=== PATIENT | male | born 2000 | race Asian ===

== ENCOUNTER 2018-12-27 22:25 | Emergency (ER) | payer OTHER ==
[2018-12-27 22:46] LABS: BILIRUBIN,URINE NEGATIVE (NEGATIVE); GLUCOSE, URINE (UA) NEGATIVE (NEGATIVE); KETONES,URINE (UA) NEGATIVE (NEGATIVE); LEUKOCYTE ESTERASE, URINE NEGATIVE (NEGATIVE); NITRITE,URINE NEGATIVE (NEGATIVE); OCCULT BLOOD,URINE TRACE-INTA (NEGATIVE); PROTEIN,URINE NEGATIVE (NEGATIVE); UROBILINOGEN,URINE 0.2 (NORMAL) E.U./dL (NORMAL)
[2018-12-27 22:49] LABS: CLARITY,URINE CLEAR (CLEAR)
--- NOTE | 2018-12-27 22:55 | ED Physician Documentation ---
PD HPI ABD PAIN - Stated complaint Stated Complaint: ABD/BODY PX - Chief complaint Chief Complaint: Abd Pain - History obtained from History obtained from: Patient - History of Present Illness Timing - onset: Other ("earlier this week, or maybe last week" (per patient)) Pain level now: 3 Quality: Pain Location: All over / everywhere, Other (patient indicates entire anterior abdomen and chest) Improved by: Other (no ameliorating factors) Worsened by: Other (no exacerbating factors) Associated symptoms: Chest pain. No: Fever, Nausea, Vomiting, Diarrhea, Constipation Similar symptoms before: Has not had sx before Recently seen: Not recently seen Review of Systems Constitutional: denies: Fever Cardiac: reports: Chest pain / pressure. denies: Palpitations, Pedal edema Respiratory: denies: Dyspnea GI: reports: Abdominal Pain. denies: Abdominal Swelling, Nausea, Vomiting, Constipation, Diarrhea : denies: Dysuria, Frequency Musculoskeletal: denies: Back pain PD PAST MEDICAL HISTORY - Past Medical History Past Medical History: Yes GI: GERD - Past Surgical History Past Surgical History: No - Allergies Allergies/Adverse Reactions: Allergies Allergy/AdvReac Type Severity Reaction Status Date / Time No Known Drug Allergies Allergy Verified 12/27/18 22:33 - Social History Does the pt smoke?: No Smoking Status: Never smoker Does the pt drink ETOH?: No Does the pt have substance abuse?: No PD ED PE NORMAL - Vitals Vital signs reviewed: Yes - General General: Alert and oriented X 3, No acute distress, Well developed/nourished - HEENT HEENT: Moist mucous membranes - Cardiac Cardiac: RRR, No murmur, No gallop, No rub - Respiratory Respiratory: No respiratory distress, Clear bilaterally - Abdomen Abdomen: Soft, Non tender - Extremities Extremities: No edema Results - Vitals Vitals: Vital Signs - 24 hr 12/27/18 12/28/18 22:29 00:33 Temperature 37 C 37.2 C Heart Rate 75 75 Respiratory 16 18 Rate Blood Pressure 152/77 H 133/69 H O2 Saturation 100 100 Oxygen O2 Source Room air - Labs Labs: Laboratory Tests 12/27/18 12/27/18 12/27/18 22:37 23:50 23:50 WBC 6.7 RBC 5.70 Hgb 17.1 Hct 50.9 MCV 89.3 MCH 30.0 MCHC 33.6 RDW 13.3 Plt Count 289 MPV 7.6 Neut # (Auto) 4.5 Lymph # (Auto) 1.4 L [place] # (Auto) 0.6 Eos # (Auto) 0.2 Baso # (Auto) 0.0 Absolute Nucleated RBC 0.01 Nucleated RBC % 0.1 Sodium 137 Potassium 3.7 Chloride 98 L Carbon Dioxide 28 Anion Gap 11.0 BUN 14 Creatinine 1.1 Estimated GFR (MDRD) 85 L Glucose 127 H Calcium 9.2 Total Bilirubin 0.7 AST 22 ALT 26 Alkaline Phosphatase 66 Total Protein 8.0 Albumin 4.5 Globulin 3.5 Albumin/Globulin Ratio 1.3 Lipase 30 Urine Color YELLOW Urine Clarity CLEAR Urine pH 7.0 Ur Specific [place] 1.010 Urine Protein NEGATIVE Urine Glucose (UA) NEGATIVE Urine Ketones NEGATIVE Urine Occult Blood TRACE-INTA Urine Nitrite NEGATIVE Urine Bilirubin NEGATIVE Urine Urobilinogen 0.2 (NORMAL) Ur Leukocyte Esterase NEGATIVE Ur Microscopic Review NOT INDICATED Urine Culture Comments NOT INDICATED - Rads (name of study) chest xray Radiology: Prelim report reviewed, See rad report PD MEDICAL DECISION MAKING - ED course Complexity details: reviewed results, re-evaluated patient, considered differential, d/w patient, d/w family Departure - Departure Disposition: 01 Home, Self Care Clinical Impression: Chest pain, Abdominal pain Condition: Good Instructions: ED Chest Pain NonCardiac, ED Abdominal Pain Unkn Cause Male Discharge Date/Time: 12/28/18 00:44
--- NOTE | 2018-12-27 23:50 | XRAY Report ---
Reason: chest pain Procedure Date: 12/27/2018 Accession Number: [id number] / [id number] Procedure: XR - Chest 2 View X-Ray CPT Code: 31149 FULL RESULT: EXAM: CHEST RADIOGRAPHY EXAM DATE: 12/27/2018 11:28 PM. CLINICAL HISTORY: Chest pain. COMPARISON: None. TECHNIQUE: 2 views. FINDINGS: Lungs/Pleura: No alveolar consolidation or pleural effusion seen. No pneumothorax. Mediastinum: Heart and mediastinal contours are unremarkable. Other: None. IMPRESSION: 1. No acute abnormality seen in the chest. RADIA
[2018-12-28 00:02] LABS: BASOPHILS % (AUTO) 0.6 %; EOSINOPHILS # (AUTO) 0.2 10^3/uL (0.0-0.7); EOSINOPHILS % (AUTO) 2.4 %; HGB - HEMOGLOBIN 17.1 g/dL (14.0-18.0); LYMPHOCYTES # (AUTO) 1.4 10^3/uL (1.5-3.5); LYMPHOCYTES % (AUTO) 21.2 %; MEAN CORPUSCULAR HGB CONC 33.6 g/dL (32.0-36.0); MEAN CORPUSCULAR VOLUME 89.3 fL (80.0-94.0); MEAN PLATELET VOLUME 7.6 fL (7.4-11.4); MONOCYTES # (AUTO) 0.6 10^3/uL (0.0-1.0); MONOCYTES % (AUTO) 8.3 %; NEUTROPHILS # (AUTO) 4.5 10^3/uL (1.5-6.6); NEUTROPHILS % (AUTO) 67.5 %; PLT - PLATELET COUNT 289 10^3/uL (130-450); RED CELL DISTRIBUTION WIDTH 13.3 % (12.0-15.0); WHITE BLOOD COUNT 6.7 x10^3/uL (4.8-10.8)
[2018-12-28 00:10] LABS: ALBUMIN 4.5 g/dL (3.2-5.5); ALBUMIN/GLOBULIN RATIO 1.3 (1.0-2.2); BILIRUBIN,TOTAL 0.7 mg/dL (0.2-1.0); CALCIUM 9.2 mg/dL (8.5-10.3); CREATININE 1.1 mg/dL (0.6-1.2)
[2018-12-28 00:34] VITALS: BP 133/69
== END 2018-12-28 00:44 | disposition home or self-care (01) ==
LOC: ED 22:25
DX: R07.9 Chest pain, unspecified (principal); R10.9 Unspecified abdominal pain; K21.9 Gastro-esophageal reflux disease without esophagitis
CPT/HCPCS: 36415; 71046; 80053; 81001; 81003; 83690; 85025; 87086; 99283

== ENCOUNTER 2021-03-11 17:30 | Emergency (ER) | payer MEDICAID, OTHER ==
--- NOTE | 2021-03-11 19:26 | ED Physician Documentation ---
History of Present Illness - Stated complaint Stated Complaint: HEADACHE/BILAT EAR PX+5DAYS - Chief complaint Chief Complaint: Heent - History obtained from History obtained from: Patient, Family - Additonal information Additional information: 21-year-old gentleman with history of asthma for the past 5 days has had mild left-sided and right-sided intermittent headaches. Over the last days developed bilateral ear pain. His mother looked in his years and thought there was blood in his ears which necessitated the visit. He has had a runny nose but no fevers. No neck stiffness. He is fully immunized against Covid. Review of Systems Constitutional: denies: Fever, Chills Ears: reports: Drainage/discharge, Reviewed and negative Nose: reports: Rhinorrhea / runny nose, Reviewed and negative PD PAST MEDICAL HISTORY - Past Medical History Past Medical History: No GI: GERD - Past Surgical History Past Surgical History: No - Present Medications Home Medications: Ambulatory Orders Medication Instructions Recorded Confirmed Cetirizine [ZyrTEC] 10 mg PO DAILY 03/11/21 03/11/21 Fluticasone [Flonase] 1 spr .ROUTE DAILY 03/11/21 03/11/21 - Allergies Allergies/Adverse Reactions: Allergies Allergy/AdvReac Type Severity Reaction Status Date / Time peanut Allergy Anaphylaxis Verified 03/11/21 17:56 - Social History Does the pt smoke?: No Smoking Status: Never smoker Does the pt drink ETOH?: No Does the pt have substance abuse?: No - Immunizations Immunizations are current?: Yes PD ED PE NORMAL - Vitals Vital signs reviewed: Yes - General General: Alert and oriented X 3, No acute distress - HEENT HEENT: PERRL, EOMI, Pharynx benign, Other (TMs are normal, no blood in the canals, no canal inflammation.) - Neck Neck: Supple, no meningeal sign, No bony TTP - Neuro Neuro: Alert and oriented X 3, teaching fellow 2-12 intact, No motor deficit, No sensory deficit, Normal speech Eye Opening: Spontaneous Motor: Obeys Commands Verbal: Oriented GCS Score: 15 - Psych Psych: Normal mood, Normal affect Results - Vitals Vitals: Vital Signs - 24 hr 03/11/21 17:50 Temperature 37.0 C Heart Rate 87 Respiratory 16 Rate Blood Pressure 136/74 H O2 Saturation 96 Oxygen O2 Source Room air PD MEDICAL DECISION MAKING - ED course ED course: Has mild intermittent headaches, the pattern and exam are not consistent with anything serious like subarachnoid hemorrhage or meningitis. He was offered CT scanning but after discussion declines and prefers watchful waiting at home. Ibuprofen and Aleve have been helpful. Departure - Departure Disposition: 01 Home, Self Care Clinical Impression: Bilateral headaches Condition: Good Record reviewed to determine appropriate education?: Yes Instructions: ED Cephalgia Unspecified Comments: As discussed, the examination of the ears is normal. Return if worsening or if you develop new or worsening symptoms. Follow-up with your physician next week for reevaluation. You can continue to take Tylenol or ibuprofen as needed for pain.
[2021-03-11 19:39] VITALS: BP 132/63
== END 2021-03-11 19:42 | disposition home or self-care (01) ==
LOC: ED 17:30
DX: R51.9 Headache, unspecified (principal)
CPT/HCPCS: 99281; 99282

== ENCOUNTER 2021-11-19 11:19 | Outpatient (CLI) | payer MEDICAID ==
[2021-11-19 13:45] LABS: BASOPHILS % (AUTO) 0.7 %; EOSINOPHILS # (AUTO) 0.1 10^3/uL (0.0-0.7); HCT - HEMATOCRIT 50.8 % (42.0-52.0); HGB - HEMOGLOBIN 17.4 g/dL (14.0-18.0); LYMPHOCYTES # (AUTO) 1.7 10^3/uL (1.5-3.5); LYMPHOCYTES % (AUTO) 37.4 %; MEAN CORPUSCULAR HEMOGLOBIN 29.5 pg (27.0-31.0); MEAN CORPUSCULAR HGB CONC 34.3 g/dL (32.0-36.0); MEAN CORPUSCULAR VOLUME 86.2 fL (80.0-94.0); MEAN PLATELET VOLUME 9.2 fL (7.4-11.4); MONOCYTES # (AUTO) 0.4 10^3/uL (0.0-1.0); MONOCYTES % (AUTO) 8.1 %; NEUTROPHILS # (AUTO) 2.3 10^3/uL (1.5-6.6); NEUTROPHILS % (AUTO) 51.6 %; PLT - PLATELET COUNT 303 10^3/uL (130-450); RED BLOOD COUNT 5.89 10^6/uL (4.70-6.10); WHITE BLOOD COUNT 4.5 x10^3/uL (4.8-10.8)
[2021-11-19 14:00] LABS: ALBUMIN 4.8 g/dL (3.2-5.5); ALBUMIN/GLOBULIN RATIO 1.3 (1.0-2.2); BILIRUBIN,TOTAL 1.7 mg/dL (0.2-1.0); CALCIUM 9.7 mg/dL (8.5-10.3); CREATININE 1.1 mg/dL (0.6-1.2); POTASSIUM 3.6 mmol/L (3.5-5.0); TOTAL PROTEIN 8.4 g/dL (6.7-8.2)
[2021-11-19 14:15] LABS: THYROID STIMULATING HORMONE 2.36 uIU/mL (0.34-5.60)
== END 2021-11-19 11:20 | disposition home or self-care (01) ==
LOC: LAB.N 11:19
PROVIDERS: ATTEND Physician Assistant
DX: K21.9 Gastro-esophageal reflux disease without esophagitis (principal); Z13.9 Encounter for screening, unspecified; Z13.29 Encounter for screening for other suspected endocrine disorder
CPT/HCPCS: 36415; 80050

== ENCOUNTER 2022-06-06 17:30 | Outpatient (CLI) | payer MEDICAID ==
--- NOTE | 2022-06-06 18:56 | XRAY Report ---
PROCEDURE: Chest 2 View X-Ray INDICATIONS: CHEST WALL PX TECHNIQUE: 2 view(s) of the chest. COMPARISON: None. FINDINGS: Surgical changes and devices: None. Lungs and pleura: No pleural effusions or pneumothorax. Lungs are clear. Mediastinum: Mediastinal contours are normal. Heart size is normal. Bones and chest wall: No suspicious bony abnormalities. Soft tissues appear unremarkable. IMPRESSION: No acute cardiopulmonary pathology. Reviewed by: Roly Barry MD on 06/06/2022 6:55 PM PDT Approved by: Roly Barry MD on 06/06/2022 6:55 PM PDT Station ID: [id number]
== END 2022-06-06 17:31 | disposition home or self-care (01) ==
LOC: DI.N 17:30
PROVIDERS: ATTEND Physician Assistant
DX: R07.89 Other chest pain (principal)

== ENCOUNTER 2022-06-16 08:59 | Outpatient (CLI) | payer MEDICAID ==
--- NOTE | 2022-06-16 12:53 | Ultrasound Report ---
PROCEDURE: Abdomen Complete INDICATIONS: ABD PAIN TECHNIQUE: Real-time scanning was performed of the abdominal and retroperitoneal organs, with image documentatio n. COMPARISON: None. FINDINGS: Liver: Liver is normal in size and homogeneous in echotexture. Main portal vein is patent with ante grade flow. Gallbladder: No stones, wall thickening, or sonographic Braxton sign. Biliary ducts: Intrahepatic bile ducts are non-dilated. Extrahepatic bile duct caliber measures 3 m m. Normal is 6-7 mm or less in diameter, or 10 mm or less post-cholecystectomy. Pancreas: Visualized portions of the pancreas are sonographically normal. Spleen: Spleen is normal in size and homogeneous in echotexture. Kidneys: Kidneys are normal in size and echotexture. Right kidney measures 10.7 cm long; left kidne y measures 10.3 cm long. No hydronephrosis or nephrolithiasis. No solid masses. Aorta: Visualized aorta is normal in caliber at less than 3 cm. Iliacs: Proximal common iliac arteries are normal in caliber at less than 2.5 cm. IVC: Intrahepatic inferior vena cava is patent. Miscellaneous: No free abdominal fluid. IMPRESSION: Unremarkable abdominal ultrasound. No cholelithiasis or evidence of acute cholecystitis. Reviewed by: Buddy Gomez MD on 06/16/2022 12:52 PM PDT Approved by: Buddy Gomez MD on 06/16/2022 12:52 PM PDT Station ID: [id number]
== END 2022-06-16 09:00 | disposition home or self-care (01) ==
LOC: DI 08:59
PROVIDERS: ATTEND Physician Assistant
DX: R10.11 Right upper quadrant pain (principal)

== ENCOUNTER 2022-11-20 18:12 | Emergency (ER) | payer MEDICAID ==
[2022-11-20 18:38] LABS: BASOPHILS % (AUTO) 0.2 %; EOSINOPHILS # (AUTO) 0.1 10^3/uL (0.0-0.7); EOSINOPHILS % (AUTO) 0.9 %; HCT - HEMATOCRIT 48.7 % (42.0-52.0); HGB - HEMOGLOBIN 16.7 g/dL (14.0-18.0); LYMPHOCYTES # (AUTO) 1.4 10^3/uL (1.5-3.5); LYMPHOCYTES % (AUTO) 26.7 %; MEAN CORPUSCULAR HEMOGLOBIN 29.7 pg (27.0-31.0); MEAN CORPUSCULAR HGB CONC 34.3 g/dL (32.0-36.0); MEAN CORPUSCULAR VOLUME 86.5 fL (80.0-94.0); MEAN PLATELET VOLUME 9.1 fL (7.4-11.4); MONOCYTES # (AUTO) 0.4 10^3/uL (0.0-1.0); MONOCYTES % (AUTO) 7.8 %; NEUTROPHILS # (AUTO) 3.4 10^3/uL (1.5-6.6); NEUTROPHILS % (AUTO) 64.2 %; PLT - PLATELET COUNT 294 10^3/uL (130-450); RED BLOOD COUNT 5.63 10^6/uL (4.70-6.10); RED CELL DISTRIBUTION WIDTH 12.2 % (12.0-15.0); WHITE BLOOD COUNT 5.3 x10^3/uL (4.8-10.8)
--- NOTE | 2022-11-20 18:40 | ED Physician Documentation ---
PD HPI CHEST PAIN - Stated complaint Stated Complaint: CHEST PX - Chief complaint Chief Complaint: Cardiac - History obtained from History obtained from: Patient - Additional information Additional information: 22-year-old gentleman has had migratory intermittent left to right chest pains over the last week that last minutes to hours at a time. Sometimes with exertion, sometimes with rest. He is not short of breath with it. He had a very small amount of blood in his spit last night. Not clear if it was hemoptysis though. He also has pain behind both knees for the last week or so. No personal history of heart problems but he does have asthma. He says his mom had an MS in her late 50s. He was seen at the urgent care and sent here for evaluation for PE. PD PAST MEDICAL HISTORY - Past Medical History Cardiovascular: None Respiratory: Asthma Neuro: None Endocrine/Autoimmune: None GI: GERD : None HEENT: None Psych: None Musculoskeletal: None Derm: Eczema - Past Surgical History Past Surgical History: No - Present Medications Home Medications: Ambulatory Orders Medication Instructions Recorded Confirmed Cetirizine [ZyrTEC] 10 mg PO DAILY 03/11/21 08/08/21 Fluticasone [Flonase] 1 spr .ROUTE DAILY 03/11/21 08/08/21 Betamethasone Dipropionate 1 applic TP BID #1 tub 08/08/21 - Allergies Allergies/Adverse Reactions: Allergies Allergy/AdvReac Type Severity Reaction Status Date / Time peanut Allergy Anaphylaxis Verified 11/20/22 18:15 - Social History Does the pt smoke?: No Smoking Status: Never smoker Does the pt drink ETOH?: No Does the pt have substance abuse?: No - Immunizations Immunizations are current?: Yes PD ED PE NORMAL - Vitals Vital signs reviewed: Yes - General General: Alert and oriented X 3, No acute distress - HEENT HEENT: PERRL, EOMI - Neck Neck: Supple, no meningeal sign, No bony TTP - Cardiac Cardiac: RRR, No murmur - Respiratory Respiratory: No respiratory distress, Clear bilaterally - Abdomen Abdomen: Non tender - Derm Derm: Normal color, Warm and dry - Extremities Extremities: No edema, No calf tenderness / cord - Neuro Neuro: Alert and oriented X 3, Normal speech Results - Vitals Vitals: Vital Signs - 24 hr 11/20/22 18:15 Temperature 36.5 C Heart Rate 100 Respiratory 16 Rate Blood Pressure 160/76 H O2 Saturation 100 Oxygen O2 Source Room air - EKG (time done) 1824 EKG releavant findings:: EKG personally interpreted by author of this note. Relevant findings are: Rate: Rate (enter#) (99) Rhythm: NSR Adams: Normal Intervals: Normal AR QRS: Normal Ischemia: Normal ST segments - Labs Labs: Laboratory Tests 11/20/22 11/20/22 11/20/22 18:30 18:30 18:30 WBC 5.3 RBC 5.63 Hgb 16.7 Hct 48.7 MCV 86.5 MCH 29.7 MCHC 34.3 RDW 12.2 Plt Count 294 MPV 9.1 Neut # (Auto) 3.4 Lymph # (Auto) 1.4 L [place] # (Auto) 0.4 Eos # (Auto) 0.1 Baso # (Auto) 0.0 Absolute Nucleated RBC 0.00 Nucleated RBC % 0.0 D-Dimer Sodium 137 Potassium 3.4 L Chloride 100 L Carbon Dioxide 28 Anion Gap 9.0 BUN 16 Creatinine 1.1 Estimated GFR (MDRD) 82 L Glucose 135 H Calcium 9.1 Total Bilirubin 0.7 AST 16 ALT 22 Alkaline Phosphatase 54 Troponin I High Sens < 2.3 L Total Protein 8.6 H Albumin 4.5 Globulin 4.1 Albumin/Globulin Ratio 1.1 Lipase 36 11/20/22 18:42 WBC RBC Hgb Hct MCV MCH MCHC RDW Plt Count MPV Neut # (Auto) Lymph # (Auto) [place] # (Auto) Eos # (Auto) Baso # (Auto) Absolute Nucleated RBC Nucleated RBC % D-Dimer < 200.0 L Sodium Potassium Chloride Carbon Dioxide Anion Gap BUN Creatinine Estimated GFR (MDRD) Glucose Calcium Total Bilirubin AST ALT Alkaline Phosphatase Troponin I High Sens Total Protein Albumin Globulin Albumin/Globulin Ratio Lipase - Rads (name of study) Single view chest x-ray demonstrates normality. Relevant Findings:: Final report received, EMP independent interpretation of test PD Medical Decision Making - ED course ED course: 22-year-old gentleman with a weeks worth of ongoing chest pain, he either spit up some blood or had a small amount of blood in his saliva last night and was sent from the urgent care for evaluation for PE. For that D-dimer testing was done and negative. His troponin was unremarkable. CMP unremarkable. CBC edison l. Heart score 1 for family history. Departure - Departure Disposition: 01 Home, Self Care Clinical Impression: Atypical chest pain Condition: Good Record reviewed to determine appropriate education?: Yes Instructions: ED Chest Pain Atypical Unkn Cause Comments: There is no evidence of heart disease tonight and we screened you for blood clots with a D-dimer test which was negative/normal. Follow-up with your primary care physician, next available appointment. Return for new or worsening symptoms.
[2022-11-20 18:47] LABS: ALBUMIN 4.5 g/dL (3.2-5.5); ALBUMIN/GLOBULIN RATIO 1.1 (1.0-2.2); BILIRUBIN,TOTAL 0.7 mg/dL (0.2-1.0); CALCIUM 9.1 mg/dL (8.5-10.3); CREATININE 1.1 mg/dL (0.6-1.2); POTASSIUM 3.4 mmol/L (3.5-5.0); TOTAL PROTEIN 8.6 g/dL (6.7-8.2)
--- NOTE | 2022-11-20 18:56 | XRAY Report ---
PROCEDURE: Chest 1 View X-Ray INDICATIONS: Chest Pain TECHNIQUE: One view of the chest was acquired. COMPARISON: 06/06/2022 FINDINGS: Surgical changes and devices: None. Lungs and pleura: No pleural effusions or pneumothorax. Lungs are clear. Mediastinum: Mediastinal contours appear normal. Heart size is normal. Bones and chest wall: No suspicious bony lesions. Overlying soft tissues appear unremarkable. IMPRESSION: Unremarkable chest plain film, stable from prior. Reviewed by: Ronn Cosby MD on 11/20/2022 5:54 PM AKDT Approved by: Ronn Cosby MD on 11/20/2022 5:54 PM AKDT Station ID: [id number]
[2022-11-20 19:23] VITALS: BP 133/78
== END 2022-11-20 19:23 | disposition home or self-care (01) ==
LOC: ED 18:12
DX: R07.89 Other chest pain (principal)
CPT/HCPCS: 36415; 80053; 83690; 84484; 85025; 85379; 93005; 99283; 99284